=== PATIENT | female | born 1965 | race African-American/Black ===

== ENCOUNTER 2017-08-22 19:38 | Emergency (ER) | payer OTHER ==
[2017-08-22] MEDS ORDERED: IPRATROPIUM-ALBUTEROL 3 ML NEB INHALATION STA ×2 (19:52→20:14)
[2017-08-22] MEDS ORDERED: methylPREDNISolone SOD SUCCI 125 MG/2 ML VIAL IV STA (20:14)
[2017-08-22] MEDS ORDERED: SODIUM CHLORIDE 0.9% 1,000 ML IV STA (20:14)
[2017-08-22] MEDS ORDERED: SODIUM CHLORIDE 0.9% 500 ML IV STA (20:14)
--- NOTE | 2017-08-22 20:18 | ED ---
SOB HPI - General Chief Complaint: Shortness of Breath Stated Complaint: SOB Time Seen by Provider: 08/22/17 20:06 Source: patient, EMS Mode of arrival: EMS Limitations: no limitations - History of Present Illness Initial Comments: This 52-year-old -Russian female presents with a complaint of some shortness of breath. She states that it initially started last night but then resolved and came back this morning. She does complain of a cough with clear production. She denies any chest pain. There is no leg pain or swelling. She does have a history of asthma and feels as though her asthma is exacerbated. She states that this often times will occur when she has a cold. She does not utilize a home nebulizer but does have a inhaler. No other complaints or modifying factors. - Related Data Home Medications Medication Instructions Recorded Confirmed Atorvastatin [Lipitor] 10 mg PO DAILY 08/22/17 08/22/17 Ergocalciferol [Vitamin D2] 50,000 unit PO Q7D 08/22/17 08/22/17 Metoprolol Succinate [Toprol Xl] 50 mg PO DAILY 08/22/17 08/22/17 metFORMIN HCL [Glucophage] 500 mg PO DAILY 08/22/17 08/22/17 Previous Rx's Medication Instructions Recorded Albuterol Sulfate [Proair Hfa] 2 puff INHALATION Q4HR PRN #1 08/22/17 inhaler Allergies Allergy/AdvReac Type Severity Reaction Status Date / Time ragweed pollen Allergy Unknown Verified 08/22/17 20:00 tree and shrub pollen Allergy Unknown Verified 08/22/17 20:00 Review of Systems ROS Statement: Those systems with pertinent positive or pertinent negative responses have been documented in the HPI. ROS Other: All systems not noted in ROS Statement are negative. Past Medical History Past Medical History: Diabetes Mellitus, Hyperlipidemia, Hypertension History of Any Multi-Drug Resistant Organisms: None Reported Past Surgical History: Hysterectomy Additional Past Surgical History / Comment(s): hysterectomy Past Psychological History: No Psychological Hx Reported Smoking Status: Current every day smoker Past Alcohol Use History: None Reported Past Drug Use History: None Reported General Exam - General Exam Comments Initial Comments: GENERAL: The patient is well nourished and well hydrated. VITAL SIGNS: Heart rate, blood pressure, respiratory rate reviewed as recorded in nurse's notes. EYES: Pupils are round and reactive. Extraocular movements are intact. No conjunctival / lid redness or swelling. ENT: No external evidence of injury, swelling, or ecchymosis. Airway is patent. Throat is clear. NECK: Nontender. No swelling or evidence of injury. No subcutaneous emphysema. Trachea is midline. No thyroid mass. HEART: Regular rate and rhythm. Good peripheral pulses. LUNGS/CHEST: There is mild wheezing noted bilaterally. No ecchymosis, subcutaneous emphysema, or tenderness. ABDOMEN: Abdomen soft without tenderness. No palpable masses or organomegaly. No peritoneal signs. No abdominal wall swelling or ecchymosis. EXTREMITIES: No extremity tenderness. Normal muscle tone and function. No thoracolumbar tenderness. NEUROLOGIC: Sensation is grossly intact. Cranial nerve exam reveals face is symmetrical, tongue is midline, speech is clear. SKIN: No abrasions or ecchymosis is noted. No induration or masses noted. PSYCHIATRIC: Alert and oriented. Appropriate behavior and judgment. Limitations: no limitations Course Vital Signs 08/22/17 08/22/17 08/22/17 19:46 19:53 20:03 Temperature 99.1 F Pulse Rate 92 80 Respiratory 24 24 Rate Blood Pressure 179/90 O2 Sat by Pulse 91 L Oximetry 08/22/17 08/22/17 08/22/17 20:25 20:45 21:04 Temperature Pulse Rate 92 88 92 Respiratory Rate Blood Pressure O2 Sat by Pulse Oximetry Medical Decision Making - Medical Decision Making The patient was seen and examined. All diagnostics were reviewed. A double DuoNeb breathing treatment is ordered. Solu-Medrol is ordered the patient refuses this medication stating that she is worried about a reaction to it. She understands that it is recommended that she be on some steroids as it is felt as though her asthma is exacerbated but she still refuses. The laboratories reviewed and does show a mild hyperglycemia and mild leukocytosis but otherwise is unremarkable. The chest x-ray does not show any acute process. Is felt as though she likely does have an exacerbation of her asthma. The possibility of a mild upper respiratory infections rarely is possible as well. Her bronchospasm is significantly improved on recheck. It is felt as though she is stable for discharge. It is also felt as though she would benefit from a home nebulizer but refuses a home nebulizer and also refuses prednisone. Return parameters are discussed. - Lab Data Result diagrams: 08/22/17 21:00 08/22/17 21:00 Lab Results 08/22/17 08/22/17 08/22/17 Range/Units 21:00 21:00 21:00 WBC 12.5 H (3.8-10.6) k/uL RBC 4.58 (3.80-5.40) m/uL Hgb 13.5 (11.4-16.0) gm/dL Hct 42.4 (34.0-46.0) % MCV 92.5 (80.0-100.0) fL MCH 29.3 (25.0-35.0) pg MCHC 31.7 (31.0-37.0) g/dL RDW 12.5 (11.5-15.5) % Plt Count 268 (150-450) k/uL Neutrophils % 86 % Lymphocytes % 8 % Monocytes % 3 % Eosinophils % 2 % Basophils % 0 % Neutrophils # 10.8 H (1.3-7.7) k/uL Lymphocytes # 1.0 (1.0-4.8) k/uL Monocytes # 0.3 (0-1.0) k/uL Eosinophils # 0.2 (0-0.7) k/uL Basophils # 0.0 (0-0.2) k/uL PT (9.0-12.0) sec INR (<1.2) APTT (22.0-30.0) sec Sodium 142 (137-145) mmol/L Potassium 4.6 (3.5-5.1) mmol/L Chloride 106 (98-107) mmol/L Carbon Dioxide 28 (22-30) mmol/L Anion Gap 8 mmol/L BUN 15 (7-17) mg/dL Creatinine 1.00 (0.52-1.04) mg/dL Est GFR (MDRD) Af Amer >60 (>60 ml/min/1.73 sqM) Est GFR (MDRD) Non-Af 58 (>60 ml/min/1.73 sqM) Glucose 153 H (74-99) mg/dL Calcium 9.3 (8.4-10.2) mg/dL Total Bilirubin <0.1 L (0.2-1.3) mg/dL AST 21 (14-36) U/L ALT 15 (9-52) U/L Alkaline Phosphatase 75 (38-126) U/L Total Creatine Kinase 140 H (30-135) U/L CK-MB (CK-2) 1.7 (0.0-2.4) ng/mL CK-MB (CK-2) Rel Index 1.2 Troponin I <0.012 (0.000-0.034) ng/mL Total Protein 6.7 (6.3-8.2) g/dL Albumin 3.8 (3.5-5.0) g/dL Influenza Type A RNA (Not Detectd) Influenza Type B (PCR) (Not Detectd) 08/22/17 08/22/17 Range/Units 21:00 21:00 WBC (3.8-10.6) k/uL RBC (3.80-5.40) m/uL Hgb (11.4-16.0) gm/dL Hct (34.0-46.0) % MCV (80.0-100.0) fL MCH (25.0-35.0) pg MCHC (31.0-37.0) g/dL RDW (11.5-15.5) % Plt Count (150-450) k/uL Neutrophils % % Lymphocytes % % Monocytes % % Eosinophils % % Basophils % % Neutrophils # (1.3-7.7) k/uL Lymphocytes # (1.0-4.8) k/uL Monocytes # (0-1.0) k/uL Eosinophils # (0-0.7) k/uL Basophils # (0-0.2) k/uL PT 9.6 (9.0-12.0) sec INR 1.0 (<1.2) APTT 23.9 (22.0-30.0) sec Sodium (137-145) mmol/L Potassium (3.5-5.1) mmol/L Chloride (98-107) mmol/L Carbon Dioxide (22-30) mmol/L Anion Gap mmol/L BUN (7-17) mg/dL Creatinine (0.52-1.04) mg/dL Est GFR (MDRD) Af Amer (>60 ml/min/1.73 sqM) Est GFR (MDRD) Non-Af (>60 ml/min/1.73 sqM) Glucose (74-99) mg/dL Calcium (8.4-10.2) mg/dL Total Bilirubin (0.2-1.3) mg/dL AST (14-36) U/L ALT (9-52) U/L Alkaline Phosphatase (38-126) U/L Total Creatine Kinase (30-135) U/L CK-MB (CK-2) (0.0-2.4) ng/mL CK-MB (CK-2) Rel Index Troponin I (0.000-0.034) ng/mL Total Protein (6.3-8.2) g/dL Albumin (3.5-5.0) g/dL Influenza Type A RNA Not Detected (Not Detectd) Influenza Type B (PCR) Not Detected (Not Detectd) Disposition Clinical Impression: Dyspnea, Leukocytosis, Hypertension, Cough, Asthma exacerbation, Upper respiratory infection Disposition: HOME SELF-CARE Condition: Good Instructions: Asthma (ED), Bronchospasm (ED), Upper Respiratory Infection (ED) , Hypertension (ED) Prescriptions: Albuterol Sulfate [Proair Hfa] 2 puff INHALATION Q4HR PRN #1 inhaler PRN Reason: cough or YASMEEN Referrals: Jennifer Rabago MD [Primary Care Provider] - 1-2 days Time of Disposition: 23:02
[2017-08-22 21:07] LABS: Basophils % (A) 0 %; Eosinophils # (A) 0.2 k/uL (0-0.7); Eosinophils % (A) 2 %; HCT 42.4 % (34.0-46.0); HGB 13.5 gm/dL (11.4-16.0); Lymphocytes % (A) 8 %; MCH 29.3 pg (25.0-35.0); MCHC 31.7 g/dL (31.0-37.0); MCV 92.5 fL (80.0-100.0); Monocytes # (A) 0.3 k/uL (0-1.0); Monocytes % (A) 3 %; Neutrophils # (A) 10.8 k/uL (1.3-7.7); Neutrophils % (A) 86 %; Platelet Count 268 k/uL (150-450); RBC 4.58 m/uL (3.80-5.40); RDW 12.5 % (11.5-15.5); WBC 12.5 k/uL (3.8-10.6)
[2017-08-22 21:15] LABS: Partial Thromboplastin Time 23.9 sec (22.0-30.0); Prothrombin Time 9.6 sec (9.0-12.0)
[2017-08-22 21:18] LABS: ALT 15 U/L (9-52); AST 21 U/L (14-36); Albumin 3.8 g/dL (3.5-5.0); Alkaline Phosphatase 75 U/L (38-126); Blood Urea Nitrogen 15 mg/dL (7-17); Calcium 9.3 mg/dL (8.4-10.2); Carbon Dioxide 28 mmol/L (22-30); Chloride 106 mmol/L (98-107); Glucose 153 mg/dL (74-99); Potassium 4.6 mmol/L (3.5-5.1); Total Bilirubin <0.1 mg/dL (0.2-1.3); Total Protein 6.7 g/dL (6.3-8.2)
[2017-08-22 21:19] LABS: Anion Gap 8 mmol/L; Sodium 142 mmol/L (137-145)
[2017-08-22 21:28] LABS: Creatine Kinase 140 U/L (30-135)
[2017-08-22 21:41] LABS: Creatine Kinase MB 1.7 ng/mL (0.0-2.4); Troponin I <0.012 ng/mL (0.000-0.034)
--- NOTE | 2017-08-22 22:01 | XR ---
EXAMINATION TYPE: XR chest 2V DATE OF EXAM: 08/22/2017 COMPARISON: NONE HISTORY: Difficulty breathing TECHNIQUE: Frontal and lateral views of the chest are obtained. FINDINGS: Copious soft tissues partially obscure the lung bases on the frontal image although no foc al consolidation is seen on the lateral image. There is no focal air space opacity, pleural effusion, or pneumothorax seen. Pulmonary hyperinflation and flattening the diaphragms may relate to degree of inspiration or underlying COPD. The osseous structures are intact. Multiple healed callused right p osterior lateral rib fractures are identified. IMPRESSION: No acute cardiopulmonary process.
[2017-08-22 23:24] VITALS: BP 133/87; PULSE 90; RESP 18; TEMP 100.1
== END 2017-08-22 23:28 | disposition home or self-care (01) ==
LOC: EC 19:38
DX: J45.901 Unspecified asthma with (acute) exacerbation (principal); J06.9 Acute upper respiratory infection, unspecified; I10 Essential (primary) hypertension; D72.829 Elevated white blood cell count, unspecified; E11.65 Type 2 diabetes mellitus with hyperglycemia; E78.5 Hyperlipidemia, unspecified; F17.200 Nicotine dependence, unspecified, uncomplicated; Z79.84 Long term (current) use of oral hypoglycemic drugs; Z79.899 Other long term (current) drug therapy; Z91.048 Other nonmedicinal substance allergy status; Z53.29 Procedure and treatment not carried out because of patient's decision for other reasons
CPT/HCPCS: 36415; 71046; 80053; 82550; 82553; 84484; 85025; 85610; 85730; 87040; 87502; 93005; 94640; 96360; 96361; 99285

== ENCOUNTER 2018-03-23 09:14 | Emergency (ER) | payer OTHER ==
[2018-03-23 09:59] VITALS: RESP 16
--- NOTE | 2018-03-23 13:11 | ED ---
ENT HPI - General Chief complaint: Dental/Oral Stated complaint: swelling left side of face Time Seen by Provider: 03/23/18 13:02 Source: patient, RN notes reviewed Mode of arrival: ambulatory Limitations: no limitations - History of Present Illness Initial comments: 52-year-old female presents emergency dept for left lower cheek swelling. Patient states this started 1 week ago states is slightly worsened. Patient denies any fever, chills, typically swelling. Patient states is minimal pain. She states that she has known bad tooth and left lower but has no current dental insurance has not followed up. Patient denies any headache, dizziness, neck stiffness. Patient offers no other complaints. - Related Data Home Medications Medication Instructions Recorded Confirmed Atorvastatin [Lipitor] 10 mg PO DAILY 08/22/17 03/23/18 Metoprolol Succinate [Toprol Xl] 50 mg PO DAILY 08/22/17 03/23/18 metFORMIN HCL [Glucophage] 500 mg PO DAILY 08/22/17 03/23/18 Previous Rx's Medication Instructions Recorded Penicillin V Potassium [Pen Vee K] 500 mg PO QID #40 tablet 03/23/18 Allergies Allergy/AdvReac Type Severity Reaction Status Date / Time ragweed pollen Allergy Unknown Verified 03/23/18 12:52 tree and shrub pollen Allergy Unknown Verified 03/23/18 12:52 Review of Systems ROS Statement: Those systems with pertinent positive or pertinent negative responses have been documented in the HPI. ROS Other: All systems not noted in ROS Statement are negative. Past Medical History Past Medical History: Diabetes Mellitus, Hyperlipidemia, Hypertension History of Any Multi-Drug Resistant Organisms: None Reported Past Surgical History: Hysterectomy, Orthopedic Surgery Additional Past Surgical History / Comment(s): hysterectomy sinus knee Past Psychological History: No Psychological Hx Reported Smoking Status: Current every day smoker Past Alcohol Use History: None Reported Past Drug Use History: None Reported General Exam General appearance: alert, in no apparent distress Head exam: Present: atraumatic, normocephalic, normal inspection Eye exam: Present: normal appearance, PERRL, EOMI. Absent: scleral icterus, conjunctival injection, periorbital swelling ENT exam: Present: mucous membranes moist, TM's normal bilaterally. Absent: normal oropharynx (Multiple dental fillings noted, no abscess noted, mild swelling to the left lower mandible region) Neck exam: Present: normal inspection, full ROM. Absent: tenderness, meningismus, lymphadenopathy Respiratory exam: Present: normal lung sounds bilaterally. Absent: respiratory distress, wheezes, rales, rhonchi, stridor Cardiovascular Exam: Present: regular rate, normal rhythm, normal heart sounds. Absent: systolic murmur, diastolic murmur, rubs, gallop, clicks Course Vital Signs 03/23/18 09:57 Temperature 97.8 F Pulse Rate 63 Respiratory 16 Rate Blood Pressure 147/97 O2 Sat by Pulse 95 Oximetry Medical Decision Making - Medical Decision Making 52-year-old female presented for left lower dental pain, swelling. Patient we treated for dental infection with pen VK she'll follow-up outpatient return for any worsening symptoms. Disposition Clinical Impression: Toothache, Dental infection Disposition: HOME SELF-CARE Condition: Stable Instructions: Dental Abscess (ED) Additional Instructions: Please return to the Emergency Department if symptoms worsen or any other concerns. Prescriptions: Penicillin V Potassium [Pen Vee K] 500 mg PO QID #40 tablet Is patient prescribed a controlled substance at d/c from ED?: No Referrals: Jennifer Rabago MD [Primary Care Provider] - 1-2 days Time of Disposition: 13:11
[2018-03-23 13:25] VITALS: BP 167/80; PULSE 61; TEMP 98
== END 2018-03-23 13:24 | disposition home or self-care (01) ==
LOC: EC 09:14
DX: K04.7 Periapical abscess without sinus (principal); E11.9 Type 2 diabetes mellitus without complications; E78.5 Hyperlipidemia, unspecified; I10 Essential (primary) hypertension; F17.200 Nicotine dependence, unspecified, uncomplicated; Z79.84 Long term (current) use of oral hypoglycemic drugs; Z79.899 Other long term (current) drug therapy; Z91.048 Other nonmedicinal substance allergy status
CPT/HCPCS: 99283

== ENCOUNTER → 2018-07-31 | Outpatient (CLI) | payer OTHER ==
[2018-07-31 09:31] LABS: Appearance,Urine Clear (Clear); Bilirubin,Urine Negative (Negative); Blood,Urine Negative (Negative); Color,Urine Light Yellow; Glucose,Urine (UA) Negative (Negative); Ketones,Urine Negative (Negative); Leukocyte Esterase,Urine Negative (Negative); Nitrite,Urine Negative (Negative); PH, Urine 5.5 (5.0-8.0); Protein,Urine Negative (Negative); Specific Gravity,Urine 1.009 (1.001-1.035); Urobilinogen,Urine <2.0 mg/dL (<2.0)
[2018-07-31 09:33] LABS: Basophils % (A) 1 %; Eosinophils # (A) 0.2 k/uL (0-0.7); Eosinophils % (A) 3 %; HCT 46.5 % (34.0-46.0); HGB 14.3 gm/dL (11.4-16.0); Lymphocytes # (A) 2.1 k/uL (1.0-4.8); Lymphocytes % (A) 28 %; MCH 28.7 pg (25.0-35.0); MCHC 30.7 g/dL (31.0-37.0); MCV 93.5 fL (80.0-100.0); Monocytes # (A) 0.4 k/uL (0-1.0); Monocytes % (A) 5 %; Neutrophils # (A) 4.5 k/uL (1.3-7.7); Neutrophils % (A) 61 %; Platelet Count 261 k/uL (150-450); RBC 4.97 m/uL (3.80-5.40); RDW 13.3 % (11.5-15.5); WBC 7.3 k/uL (3.8-10.6)
[2018-07-31 17:37] LABS: Albumin 4.3 g/dL (3.80-4.90); Albumin/Globulin Ratio 1.59 (1.20-2.10); Anion Gap 9.3 mmol/L (4.00-12.00); Calcium 9.3 mg/dL (8.7-10.3); Carbon Dioxide 28.7 mmol/L (21.6-31.8); Globulin 2.7 g/dL (1.6-3.3); LDL Cholesterol,Calculated 103.4 mg/dL (0.0-131.0); Potassium 4.5 mmol/L (3.5-5.5); Total Bilirubin 0.3 mg/dL (0.2-1.2); VLDL Calculation 30.6 mg/dL (5.00-40.00)
[2018-07-31 19:08] LABS: Hemoglobin A1C 6.5 % (4.0-6.0)
== END ==
LOC: LABWHC1 08:33
PROVIDERS: ATTEND Family Medicine
DX: E11.9 Type 2 diabetes mellitus without complications (principal); E78.5 Hyperlipidemia, unspecified; I10 Essential (primary) hypertension; Z79.899 Other long term (current) drug therapy
CPT/HCPCS: 36415; 80053; 80061; 81003; 82550; 83036; 84443; 85025

== ENCOUNTER → 2018-10-17 | Outpatient (CLI) | payer OTHER | LOC: CPPFTMAIN 10:58 | PROVIDERS: ATTEND Family Medicine | DX: R05 Cough (principal) | CPT/HCPCS: 94060; 94726; 94729 ==

== ENCOUNTER 2018-12-07 07:36 | Emergency (ER) | payer OTHER ==
[2018-12-07 07:42] VITALS: BP 150/98; PULSE 77; RESP 18; TEMP 97.7
[2018-12-07] MEDS ORDERED: ACET/COD 300 MG/30 MG STARTER PACK 6 TAB BTL PO STA (07:45)
--- NOTE | 2018-12-07 07:45 | ED ---
ENT HPI - General Chief complaint: Dental/Oral Stated complaint: dental pain/infection Time Seen by Provider: 12/07/18 07:42 Source: patient, RN notes reviewed Mode of arrival: ambulatory Limitations: no limitations - History of Present Illness Initial comments: 53-year-old female presents emergency Department chief complaint abdominal pain and right-sided last 2 days. Patient states she called her dentist who told her that they should go to the ER to be prescribed antibiotics. Patient states it's right upper and lower. Patient states she has a cracked tooth that she knows about. No fevers no chills no trismus. Patient denies any difficulty swallowing or difficulty breathing. - Related Data Home Medications Medication Instructions Recorded Confirmed Atorvastatin [Lipitor] 10 mg PO DAILY 08/22/17 03/23/18 Metoprolol Succinate [Toprol Xl] 50 mg PO DAILY 08/22/17 03/23/18 metFORMIN HCL [Glucophage] 500 mg PO DAILY 08/22/17 03/23/18 Previous Rx's Medication Instructions Recorded Penicillin V Potassium [Pen Vee K] 500 mg PO QID #40 tablet 03/23/18 Ibuprofen [Motrin] 600 mg PO Q8HR PRN #30 tab 12/07/18 Penicillin V Potassium [Pen Vee K] 500 mg PO QID #40 tablet 12/07/18 Allergies Allergy/AdvReac Type Severity Reaction Status Date / Time ragweed pollen Allergy Unknown Verified 12/07/18 07:42 tree and shrub pollen Allergy Unknown Verified 12/07/18 07:42 Review of Systems ROS Statement: Those systems with pertinent positive or pertinent negative responses have been documented in the HPI. ROS Other: All systems not noted in ROS Statement are negative. Past Medical History Past Medical History: Diabetes Mellitus, Hyperlipidemia, Hypertension History of Any Multi-Drug Resistant Organisms: None Reported Past Surgical History: Hysterectomy, Orthopedic Surgery Additional Past Surgical History / Comment(s): hysterectomy sinus knee Past Psychological History: No Psychological Hx Reported Smoking Status: Current every day smoker Past Alcohol Use History: None Reported Past Drug Use History: None Reported General Exam Limitations: no limitations General appearance: alert, in no apparent distress Head exam: Present: atraumatic, normocephalic, normal inspection Eye exam: Present: normal appearance, PERRL, EOMI. Absent: scleral icterus, conjunctival injection, periorbital swelling ENT exam: Present: mucous membranes moist. Absent: normal oropharynx (Poor dentition, multiple dental caries, dental fracture right upper) Neck exam: Present: normal inspection, full ROM. Absent: tenderness, meningismus, lymphadenopathy Respiratory exam: Present: normal lung sounds bilaterally. Absent: respiratory distress, wheezes, rales, rhonchi, stridor Cardiovascular Exam: Present: regular rate, normal rhythm, normal heart sounds. Absent: systolic murmur, diastolic murmur, rubs, gallop, clicks Course Vital Signs 12/07/18 07:39 Temperature 97.7 F Pulse Rate 77 Respiratory 18 Rate Blood Pressure 150/98 O2 Sat by Pulse 96 Oximetry Medical Decision Making - Medical Decision Making 53-year-old female presented for dental pain. Patient was prescribed 10 VK, ibuprofen and Tylenol with codeine starter pack. Patient will follow-up with dentist in 2 days return for any worsening symptoms. Disposition Clinical Impression: Pain, dental, Dental infection Disposition: HOME SELF-CARE Condition: Stable Instructions (If sedation given, give patient instructions): Dental Abscess (ED) Additional Instructions: Please return to the Emergency Department if symptoms worsen or any other concerns. Prescriptions: Ibuprofen [Motrin] 600 mg PO Q8HR PRN #30 tab PRN Reason: Pain Penicillin V Potassium [Pen Vee K] 500 mg PO QID #40 tablet Is patient prescribed a controlled substance at d/c from ED?: No Referrals: Jennifer Rabago MD [Primary Care Provider] - 1-2 days Time of Disposition: 07:45
== END 2018-12-07 08:01 | disposition home or self-care (01) ==
LOC: EC 07:36
DX: K04.7 Periapical abscess without sinus (principal); E11.9 Type 2 diabetes mellitus without complications; E78.5 Hyperlipidemia, unspecified; I10 Essential (primary) hypertension; F17.200 Nicotine dependence, unspecified, uncomplicated; Z79.84 Long term (current) use of oral hypoglycemic drugs; Z79.899 Other long term (current) drug therapy; Z91.048 Other nonmedicinal substance allergy status
CPT/HCPCS: 99282

== ENCOUNTER 2019-03-27 08:02 | Emergency (ER) | payer OTHER ==
[2019-03-27 08:12] VITALS: BP 164/106; PULSE 65; RESP 18; TEMP 97.8
--- NOTE | 2019-03-27 08:40 | ED ---
Lower Extremity Injury HPI - General Chief Complaint: Extremity Injury, Lower Stated Complaint: Rash on knee Time Seen by Provider: 03/27/19 08:28 Source: patient, RN notes reviewed Mode of arrival: ambulatory Limitations: no limitations - History of Present Illness Initial Comments: 53-year-old female presents emergency from chief complaint of rash to her left knee. Patient states that she fell and had an abrasion couple days ago. She has been putting bandages on it and noticed that she's had a rash or. Patient denies any fevers chills no pain with range of motion of her knee she states her tetanus is up-to-date. Patient states she has not placed anything over the area of the rash such as a cream. - Related Data Home Medications Medication Instructions Recorded Confirmed Atorvastatin [Lipitor] 10 mg PO DAILY 08/22/17 03/23/18 Metoprolol Succinate [Toprol Xl] 50 mg PO DAILY 08/22/17 03/23/18 metFORMIN HCL [Glucophage] 500 mg PO DAILY 08/22/17 03/23/18 Allergies Allergy/AdvReac Type Severity Reaction Status Date / Time ragweed pollen Allergy Unknown Verified 03/27/19 08:40 tree and shrub pollen Allergy Unknown Verified 03/27/19 08:40 Review of Systems ROS Statement: Those systems with pertinent positive or pertinent negative responses have been documented in the HPI. ROS Other: All systems not noted in ROS Statement are negative. Past Medical History Past Medical History: Diabetes Mellitus, Hyperlipidemia, Hypertension History of Any Multi-Drug Resistant Organisms: None Reported Past Surgical History: Hysterectomy, Orthopedic Surgery Additional Past Surgical History / Comment(s): hysterectomy sinus knee Past Psychological History: No Psychological Hx Reported Smoking Status: Current every day smoker Past Alcohol Use History: None Reported Past Drug Use History: None Reported General Exam Limitations: no limitations General appearance: alert, in no apparent distress Head exam: Present: atraumatic, normocephalic, normal inspection Eye exam: Present: normal appearance, PERRL, EOMI. Absent: scleral icterus, conjunctival injection, periorbital swelling Respiratory exam: Present: normal lung sounds bilaterally. Absent: respiratory distress, wheezes, rales, rhonchi, stridor Cardiovascular Exam: Present: regular rate, normal rhythm, normal heart sounds. Absent: systolic murmur, diastolic murmur, rubs, gallop, clicks Extremities exam: Present: other (Right knee there is an abrasion of swelling, there is an erythematous slightly papular rash over the area where bandage is placed. Just contact dermatitis) Course Vital Signs 03/27/19 08:08 Temperature 97.8 F Pulse Rate 65 Respiratory 18 Rate Blood Pressure 164/106 O2 Sat by Pulse 99 Oximetry Medical Decision Making - Medical Decision Making 53-year-old female presented to emergency department for rash to her right knee. This is consistent with contact dermatitis from her bandages. Patient advised to apply topical hydrocortisone or Benadryl cream. Disposition Clinical Impression: Contact dermatitis Disposition: HOME SELF-CARE Condition: Stable Instructions (If sedation given, give patient instructions): Contact Dermatitis (ED) Additional Instructions: Use [id number] topical Benadryl or hydrocortisone cream. Please return to the Emergency Department if symptoms worsen or any other concerns. Is patient prescribed a controlled substance at d/c from ED?: No Referrals: Jennifer Rabago MD [Primary Care Provider] - 1-2 days Time of Disposition: 08:40
== END 2019-03-27 08:43 | disposition home or self-care (01) ==
LOC: EC 08:02
DX: L25.9 Unspecified contact dermatitis, unspecified cause (principal); E11.9 Type 2 diabetes mellitus without complications; E78.5 Hyperlipidemia, unspecified; I10 Essential (primary) hypertension; F17.200 Nicotine dependence, unspecified, uncomplicated; Z79.84 Long term (current) use of oral hypoglycemic drugs; Z79.899 Other long term (current) drug therapy; Z91.09 Other allergy status, other than to drugs and biological substances
CPT/HCPCS: 99282

== ENCOUNTER → 2019-03-27 | Outpatient (CLI) | payer OTHER ==
[2019-03-27 21:20] LABS: Hemoglobin A1C 6.5 % (4.0-6.0)
== END | disposition home or self-care (01) ==
LOC: LABWHC1 07:37
PROVIDERS: ATTEND Family Medicine
DX: E11.9 Type 2 diabetes mellitus without complications (principal)
CPT/HCPCS: 36415; 83036

== ENCOUNTER → 2019-05-18 | Outpatient (CLI) | payer OTHER ==
--- NOTE | 2019-05-18 13:13 | US ---
EXAMINATION TYPE: US thyroid st tissue head/neck DATE OF EXAM: 05/18/2019 COMPARISON: US 10/05/18 CLINICAL HISTORY: E04.1 Thyroid nodule; I73.9 reinaldo claudication. GLAND SIZE: Right Lobe: 3.6 x 1.8 x 1.5 cm Overall Parenchyma: homogenous Left Lobe: 3.9 x 1.9 x 1.4 cm Overall Parenchyma: homogeneous Isthmus Thickness: 0.4 cm NODULES RIGHT: # of nodules measured on right: 1 1. 0.6 X 0.5 x 0.3 cm hypoechoic mixed nodule at the mid pole with well-defined margins; . This no dule is wider than tall and shows no intranodular vascularity. Prior size: 0.8 x 0.7 x 0.9 cm LEFT: # of nodules measured on left: 0 ISTHMUS: # of nodules measured in the isthmus: 0 Bilateral neck scanned, no evidence of lymphadenopathy. IMPRESSION: Smaller size of the cystic right thyroid nodule, highly favoring a benign etiology.
--- NOTE | 2019-05-23 11:52 | P.ARTDOP ---
Arterial Doppler LOWER EXTREMITY ARTERIAL DOPPLER: DATE OF SERVICE: 05/18/2019 Reason for study: Calf pain. Doppler waveforms: Multiphasic bilaterally throughout. Pulse volume recording: []. Pressure gradients: None. Ankle-brachial indices: Greater than 1 bilaterally. Toe pressures: 129 on the right, 129 on the left Impression: Normal study.
== END | disposition home or self-care (01) ==
LOC: RADUSWWP 12:22
PROVIDERS: ATTEND Family Medicine
DX: E04.1 Nontoxic single thyroid nodule (principal); I73.9 Peripheral vascular disease, unspecified
CPT/HCPCS: 76536; 93922

== ENCOUNTER → 2019-07-23 | Outpatient (CLI) | payer OTHER | END | disposition home or self-care (01) | LOC: RADMRIMAIN 11:23 | PROVIDERS: ATTEND Family Medicine | DX: Z53.9 Procedure and treatment not carried out, unspecified reason (principal) ==

== ENCOUNTER → 2019-07-23 | Outpatient (CLI) | payer OTHER ==
--- NOTE | 2019-07-23 13:07 | US ---
EXAMINATION TYPE: US carotid duplex BILAT DATE OF EXAM: 07/23/2019 COMPARISON: NONE CLINICAL HISTORY: R09.89 Carotid bruit. Bruit EXAM MEASUREMENTS: RIGHT: Peak Systolic Velocity (PSV) cm/sec ----- Right CCA: 61.3 ----- Right ICA: 104.0 ----- Right ECA: 77.2 ICA/CCA ratio: 1.7 RIGHT: End Diastole cm/sec ----- Right CCA: 23.1 ----- Right ICA: 42.4 ----- Right ECA: 21.1 LEFT: Peak Systolic Velocity (PSV) cm/sec ----- Left CCA: 102.7 ----- Left ICA: 99.1 ----- Left ECA: 96.6 ICA/CCA ratio: 1.0 LEFT: End Diastole cm/sec ----- Left CCA: 34.7 ----- Left ICA: 45.6 ----- Left ECA: 29.9 VERTEBRALS (direction of flow): Right Vertebral: Antegrade Left Vertebral: Antegrade Rhythm: Normal No elevated velocities, no significant stenosis. IMPRESSION: Mild degree of grayscale atheromatous plaquing with no sonographically evident hemodynam ically significant stenosis within either visualized carotid arterial system. Criteria for Assigning % of Stenosis / Diameter reduction (Estimation based on the indirect measurements of the internal carotid artery velocities (ICA PSV). 1. Normal (no stenosis)=ICA PSV < 125 cm/s: ratio < 2.0: ICA EDV<40 cm/s. 2. Less than 50% stenosis=ICA PSV < 125 cm/s: ratio < 2.0: ICA EDV<40 cm/s. 3. 50 to 69% stenosis=ICA PSV of 125 to 230 cm/s: ration 2.0 ? 4.0: ICA EDV 40-100 cm/s. 4. Greater than 70% stenosis to near occlusion= ICA PSV > 230 cm/s: ratio > 4.0: ICA EDV > 100 cm/s. 5. Near occlusion= ICA PSV velocities may be low or undetectable: variable ratio and ICA EDV. 6. Total occlusion=unable to detect flow.
== END | disposition home or self-care (01) ==
LOC: RADUSWWP 12:39
PROVIDERS: ATTEND Family Medicine
DX: I67.2 Cerebral atherosclerosis (principal)
CPT/HCPCS: 93880

== ENCOUNTER → 2019-12-13 | Outpatient (CLI) | payer OTHER ==
[2019-12-13 11:04] LABS: HCT 42.7 % (34.0-46.0); HGB 13.5 gm/dL (11.4-16.0); Hypochromasia Moderate; MCHC 31.7 g/dL (31.0-37.0); MCV 94.8 fL (80.0-100.0); Mean Platelet Volume 7.9; Platelet Count 245 k/uL (150-450); RBC 4.51 m/uL (3.80-5.40); RDW 12.9 % (11.5-15.5)
[2019-12-13 19:31] LABS: African American GFR (CKD) 84.6 (60.0-200.0); Albumin 4.1 g/dL (3.80-4.90); Albumin/Globulin Ratio 1.71 (1.60-3.17); Anion Gap 6.1 mmol/L (4.00-12.00); BUN/Creat Ratio 17.78 Ratio (12.00-20.00); Carbon Dioxide 24.9 mmol/L (21.6-31.8); Chol/HDL Ratio 3.15; Globulin 2.4 g/dL (1.6-3.3); LDL Cholesterol,Calculated 88.2 mg/dL (0.0-131.0); Potassium 5.4 mmol/L (3.5-5.5); Total Bilirubin 0.2 mg/dL (0.2-1.2); Total Protein 6.5 g/dL (6.2-8.2); VLDL Calculation 40.8 mg/dL (5.00-40.00)
[2019-12-13 21:54] LABS: Hemoglobin A1C 6.8 % (4.0-6.0)
== END | disposition home or self-care (01) ==
LOC: LABWHC1 09:46
PROVIDERS: ATTEND Family Medicine
DX: I10 Essential (primary) hypertension (principal); E78.5 Hyperlipidemia, unspecified; E11.9 Type 2 diabetes mellitus without complications; E87.8 Other disorders of electrolyte and fluid balance, not elsewhere classified; E04.1 Nontoxic single thyroid nodule; R53.83 Other fatigue
CPT/HCPCS: 36415; 80053; 80061; 83036; 84443; 85027

== ENCOUNTER → 2020-03-13 | Outpatient (CLI) | payer OTHER ==
--- NOTE | 2020-03-17 08:03 | MM ---
Reason for exam: screening (asymptomatic). Last mammogram was performed 1 year and 5 months ago. History: Patient is postmenopausal. Physical Findings: A clinical breast exam by your physician is recommended on an annual basis and results should be correlated with mammographic findings. MG Screening Mammo w CAD Bilateral CC and MLO view(s) were taken. Prior study comparison: October 05, 2018, bilateral MG screening mammo w CAD. There are scattered fibroglandular densities. No significant changes when compared with prior studies. ASSESSMENT: Benign, BI-RAD 2 RECOMMENDATION: Routine screening mammogram of both breasts in 1 year.
== END | disposition home or self-care (01) ==
LOC: RADMAMWWP 07:00
PROVIDERS: ATTEND Family Medicine
DX: Z12.31 Encounter for screening mammogram for malignant neoplasm of breast (principal)
CPT/HCPCS: 77067

== ENCOUNTER → 2020-04-22 | Outpatient (CLI) | payer OTHER ==
[2020-04-22 08:33] LABS: Basophils % (A) 0 %; Eosinophils # (A) 0.2 k/uL (0-0.7); Eosinophils % (A) 3 %; HCT 44.3 % (34.0-46.0); HGB 14.1 gm/dL (11.4-16.0); Lymphocytes # (A) 1.9 k/uL (1.0-4.8); Lymphocytes % (A) 24 %; MCH 30.3 pg (25.0-35.0); MCHC 31.8 g/dL (31.0-37.0); MCV 95.4 fL (80.0-100.0); Mean Platelet Volume 7.4; Monocytes # (A) 0.4 k/uL (0-1.0); Monocytes % (A) 6 %; Neutrophils % (A) 65 %; Platelet Count 250 k/uL (150-450); RBC 4.65 m/uL (3.80-5.40); RDW 12.5 % (11.5-15.5); WBC 7.7 k/uL (3.8-10.6)
[2020-04-22 08:55] LABS: Appearance,Urine Clear (Clear); Bilirubin,Urine Negative (Negative); Blood,Urine Trace (Negative); Color,Urine Yellow; Glucose,Urine (UA) Negative (Negative); Ketones,Urine Negative (Negative); Leukocyte Esterase,Urine Negative (Negative); Nitrite,Urine Negative (Negative); Protein,Urine Negative (Negative); RBC,Urine <1 /hpf (0-5); Specific Gravity,Urine 1.011 (1.001-1.035); Squamous Epithelial Cell,Urine 1 /hpf (0-4); Urobilinogen,Urine <2.0 mg/dL (<2.0); WBC,Urine 1 /hpf (0-5)
[2020-04-22 16:08] LABS: African American GFR (CKD) 84.6 (60.0-200.0); Albumin 4.1 g/dL (3.80-4.90); Albumin/Globulin Ratio 1.71 (1.60-3.17); Anion Gap 7.5 mmol/L (4.00-12.00); BUN/Creat Ratio 15.56 Ratio (12.00-20.00); Calcium 9.2 mg/dL (8.7-10.3); Carbon Dioxide 28.5 mmol/L (21.6-31.8); Chol/HDL Ratio 2.41; Globulin 2.4 g/dL (1.6-3.3); LDL Cholesterol,Calculated 61.4 mg/dL (0.0-131.0); Potassium 4.4 mmol/L (3.5-5.5); Total Bilirubin 0.2 mg/dL (0.3-1.2); Total Protein 6.5 g/dL (6.2-8.2); VLDL Calculation 20.6 mg/dL (5.00-40.00)
[2020-04-22 17:45] LABS: Hemoglobin A1C 6.6 % (4.0-6.0)
== END | disposition home or self-care (01) ==
LOC: LABWHC1 07:40
PROVIDERS: ATTEND Family Medicine
DX: E11.9 Type 2 diabetes mellitus without complications (principal); E78.5 Hyperlipidemia, unspecified; Z79.899 Other long term (current) drug therapy; E03.9 Hypothyroidism, unspecified
CPT/HCPCS: 36415; 80053; 80061; 81001; 82550; 83036; 84443; 85025

== ENCOUNTER → 2020-10-07 | Outpatient (CLI) | payer OTHER ==
--- NOTE | 2020-10-07 12:26 | ECHOF ---
Referral Reason:I10, Z82.49, E11.9, R01.1 MEASUREMENTS -------- HEIGHT: 162.6 cm WEIGHT: 63.5 kg BP: RVIDd: 3.8 cm (< 3.3) IVSd: 0.9 cm (0.6 - 1.1) LVIDd: 4.0 cm (3.9 - 5.3) LVPWd: 1.2 cm (0.6 - 1.1) IVSs: 1.0 cm LVIDs: 2.5 cm LVPWs: 1.4 cm LAESV Index (A-L): 13.40 ml/m Ao Diam: 3.0 cm (2.0 - 3.7) AV Cusp: 1.8 cm (1.5 - 2.6) LA Diam: 3.0 cm (2.7 - 3.8) MV EXCURSION: 18.036 mm (> 18.000) MV EF SLOPE: 116 mm/s (70 - 150) EPSS: 1.7 cm MV E Evens: 0.82 m/s MV DecT: 208 ms MV A Evens: 0.76 m/s MV E/A Ratio: 1.08 RAP: 5.00 mmHg RVSP: 16.96 mmHg FINDINGS -------- Sinus rhythm. This was a technically difficult study with suboptimal apical views. The left ventricular size is normal. Left ventricular wall thickness is normal. Overall left vent ricular systolic function is normal with, an EF between 55 - 60 %. The right ventricle is mild to moderately enlarged. Normal LA size by volume 22+/-6 ml/m2. The right atrium was not well visualized. 5.0mg of Lumason was utilized for enhancement of images Interatrial and interventricular septum intact. There is mild aortic valve sclerosis. There is no evidence of aortic regurgitation. There is no e vidence of aortic stenosis. No mitral regurgitation. Mild tricuspid regurgitation present. There is no evidence of pulmonary hypertension. The right v entricular systolic pressure, as measured by Doppler, is 16.96mmHg. There is no pulmonic regurgitation present. The aortic root size is normal. IVC Not well visulized. There is no pericardial effusion. CONCLUSIONS -------- 1. The left ventricular size is normal. 2. Left ventricular wall thickness is normal. 3. Overall left ventricular systolic function is normal with, an EF between 55 - 60 %. 4. The right ventricle is mild to moderately enlarged. 5. There is mild aortic valve sclerosis. 6. Mild tricuspid regurgitation present. CATERER HELPER: Genevieve Oreilly RDCS
== END ==
LOC: RADNMMAIN 09:10
PROVIDERS: ATTEND Family Medicine
DX: I07.1 Rheumatic tricuspid insufficiency (principal); I35.8 Other nonrheumatic aortic valve disorders; I10 Essential (primary) hypertension; E11.9 Type 2 diabetes mellitus without complications; Z82.49 Family history of ischemic heart disease and other diseases of the circulatory system
CPT/HCPCS: C8929; Q9950; 93306

== ENCOUNTER 2020-10-11 10:27 | Emergency (ER) | payer OTHER ==
[2020-10-11 10:35] VITALS: BP 142/92; PULSE 83; RESP 18; TEMP 98.5
[2020-10-11] MEDS ORDERED: DEXAMETHASONE SOD PHOSPHATE 10 MG/ML 1 ML VIAL IV STA (10:49)
[2020-10-11] MEDS ORDERED: AMOXIC-POT CLAV 875MG STARTER PACK 2 TAB BTL PO STA (10:49)
[2020-10-11] MEDS ORDERED: ACETAMINOPHEN TAB 500 MG TAB PO STA (10:49)
[2020-10-11] MEDS ORDERED: IBUPROFEN 600 MG TAB PO STA (10:49)
[2020-10-11] MEDS ORDERED: AMOXIC-POT CLAV 875-125MG 1 EACH TAB PO STA (10:49)
--- NOTE | 2020-10-11 10:57 | ED ---
ENT HPI - General Chief complaint: ENT Stated complaint: Head ache,face swelling Time Seen by Provider: 10/11/20 10:35 Source: patient, RN notes reviewed, old records reviewed Mode of arrival: ambulatory Limitations: no limitations - History of Present Illness Initial comments: This is a 55-year-old female DF for evaluation patient is significantly has Nose nose pain still swollen and face. Patient has no fevers but she's had history of sinus infections in the past and this feels the same. Patient does not take lisinopril for any reason, denies any possibility of ALLERGIC reaction just complaining of sick significant swelling and drainage MD complaint: sore throat, other (nasal drainage) Location: nose Severity: moderate Severity scale (1-10): 5 Quality: aching Consistency: constant Improves with: none Worsens with: none Context-Epistaxis: history of similar Context- Dental: other (none) Context- Ear: other (none) Associated Symptoms: gum swelling, rhinorrhea, other (lip swelling) - Related Data Home Medications Medication Instructions Recorded Confirmed Atorvastatin [Lipitor] 10 mg PO DAILY 08/22/17 03/27/19 Metoprolol Succinate [Toprol Xl] 50 mg PO DAILY 08/22/17 03/27/19 metFORMIN HCL [Glucophage] 500 mg PO DAILY 08/22/17 03/27/19 Previous Rx's Medication Instructions Recorded Amoxic-Pot Clav 875-125Mg 1 tab PO Q12HR #20 tablet 10/11/20 [Augmentin 875-125] Allergies Allergy/AdvReac Type Severity Reaction Status Date / Time ragweed pollen Allergy Unknown Verified 10/11/20 10:32 tree and shrub pollen Allergy Unknown Verified 10/11/20 10:32 Review of Systems ROS Statement: Those systems with pertinent positive or pertinent negative responses have been documented in the HPI. ROS Other: All systems not noted in ROS Statement are negative. Past Medical History Past Medical History: Diabetes Mellitus, Hyperlipidemia, Hypertension History of Any Multi-Drug Resistant Organisms: None Reported Past Surgical History: Hysterectomy, Orthopedic Surgery Additional Past Surgical History / Comment(s): hysterectomy sinus knee Past Psychological History: No Psychological Hx Reported Smoking Status: Current every day smoker Past Alcohol Use History: None Reported Past Drug Use History: None Reported General Exam Limitations: no limitations General appearance: alert, in no apparent distress Head exam: Present: atraumatic, normocephalic, normal inspection Eye exam: Present: normal appearance, PERRL, EOMI. Absent: scleral icterus, conjunctival injection, periorbital swelling ENT exam: Present: normal exam, mucous membranes moist, other (Patient does have some drainage out of her right naris significant swelling to her upper lip area. This does appear to be a cellulitis with surrounding sinusitis) Neck exam: Present: normal inspection. Absent: tenderness, meningismus, lymphadenopathy Respiratory exam: Present: normal lung sounds bilaterally. Absent: respiratory distress, wheezes, rales, rhonchi, stridor Cardiovascular Exam: Present: regular rate, normal rhythm, normal heart sounds. Absent: systolic murmur, diastolic murmur, rubs, gallop, clicks GI/Abdominal exam: Present: soft, normal bowel sounds. Absent: distended, tenderness, guarding, rebound, rigid Extremities exam: Present: normal inspection, full ROM, normal capillary refill. Absent: tenderness, pedal edema, joint swelling, calf tenderness Back exam: Present: normal inspection Neurological exam: Present: alert, oriented X3, CN II-XII intact Psychiatric exam: Present: normal affect, normal mood Skin exam: Present: warm, dry, intact, normal color. Absent: rash Course Vital Signs 10/11/20 10:32 Temperature 98.5 F Pulse Rate 83 Respiratory 18 Rate Blood Pressure 142/92 O2 Sat by Pulse 98 Oximetry - Reevaluation(s) Reevaluation #1: 10/11/20 10:53 Records reviewed Reevaluation #2: 10/11/20 10:53 Patient during evaluation does not take any STEVE inhibitor Medical Decision Making - Medical Decision Making 55 female DF for evaluation patient does have acute sinusitis with surrounding edema. Patient replacement antibiotics and can be discharged home Disposition Clinical Impression: Acute sinusitis Disposition: HOME SELF-CARE Condition: Good Instructions (If sedation given, give patient instructions): Sinusitis (ED) Prescriptions: Amoxic-Pot Clav 875-125Mg [Augmentin 875-125] 1 tab PO Q12HR #20 tablet Is patient prescribed a controlled substance at d/c from ED?: No Referrals: Jennifer Rabago MD [Primary Care Provider] - 1-2 days
== END 2020-10-11 11:55 | disposition home or self-care (01) ==
LOC: EC 10:27
DX: J01.90 Acute sinusitis, unspecified (principal); E11.9 Type 2 diabetes mellitus without complications; E78.5 Hyperlipidemia, unspecified; I10 Essential (primary) hypertension; F17.200 Nicotine dependence, unspecified, uncomplicated
CPT/HCPCS: 99283; 96374; J1100

== ENCOUNTER → 2021-03-16 | Outpatient (CLI) | payer OTHER ==
--- NOTE | 2021-03-18 13:29 | MM ---
Reason for exam: screening (asymptomatic). Last mammogram was performed 1 year ago. History: Patient is postmenopausal. Physical Findings: A clinical breast exam by your physician is recommended on an annual basis and results should be correlated with mammographic findings. MG Screening Mammo w CAD Bilateral CC and MLO view(s) were taken. Prior study comparison: March 13, 2020, bilateral MG screening mammo w CAD. October 05, 2018, bilateral MG screening mammo w CAD. There are scattered fibroglandular densities. There is no discrete abnormality. No significant changes when compared with prior studies. ASSESSMENT: Negative, BI-RAD 1 RECOMMENDATION: Routine screening mammogram of both breasts in 1 year.
== END | disposition home or self-care (01) ==
LOC: RADMAMWWP 08:36
PROVIDERS: ATTEND Family Medicine
DX: Z12.31 Encounter for screening mammogram for malignant neoplasm of breast (principal)
CPT/HCPCS: 77067

== ENCOUNTER 2021-12-05 22:07 | Emergency (ER) | payer OTHER ==
[2021-12-05 22:39] VITALS: RESP 18; TEMP 98.1
[2021-12-06 01:38] VITALS: BP 140/93; PULSE 74
--- NOTE | 2021-12-06 01:43 | ED ---
Recheck HPI - General Chief Complaint: Recheck/Abnormal Lab/Rx Stated Complaint: High BP Time Seen by Provider: 12/06/21 01:42 Source: patient, RN notes reviewed, Caregiver Mode of arrival: ambulatory Limitations: no limitations - History of Present Illness Initial Comments: This is a 56-year-old female DF for evaluation. Patient coming in for elevated blood pressure. Patient is very concerned regarding her blood pressure. Patient states she took her blood pressure at home and then at a [facility] and was unavailable time she presents to ER with mildly elevated blood pressure. She has no other complaints of headache no chest pain or shortness of breath or abdominal pain. No weakness no nausea no vomiting no numbness or tingling. MD Complaint: other (elevated blood pressure) -: unknown Returns Today for: request for prescription, other (Elevated blood pressure) Symptoms Since Prior Visit: no new symptoms Associated Symptoms: none Treatments Prior to Arrival: other medications - Related Data Home Medications Medication Instructions Recorded Confirmed Atorvastatin [Lipitor] 10 mg PO DAILY 08/22/17 10/11/20 Metoprolol Succinate [Toprol Xl] 50 mg PO DAILY 08/22/17 10/11/20 metFORMIN HCL [Glucophage] 500 mg PO DAILY 08/22/17 10/11/20 Previous Rx's Medication Instructions Recorded Amoxic-Pot Clav 875-125Mg 1 tab PO Q12HR #20 tablet 10/11/20 [Augmentin 875-125] hydroCHLOROthiazide [Hydrodiuril] 50 mg PO DAILY #30 tab 12/06/21 Allergies Allergy/AdvReac Type Severity Reaction Status Date / Time ragweed pollen Allergy Unknown Verified 12/05/21 22:39 tree and shrub pollen Allergy Unknown Verified 12/05/21 22:39 Review of Systems ROS Statement: Those systems with pertinent positive or pertinent negative responses have been documented in the HPI. ROS Other: All systems not noted in ROS Statement are negative. Past Medical History Past Medical History: Diabetes Mellitus, Hyperlipidemia, Hypertension History of Any Multi-Drug Resistant Organisms: None Reported Past Surgical History: Hysterectomy, Orthopedic Surgery Additional Past Surgical History / Comment(s): hysterectomy sinus knee Past Psychological History: No Psychological Hx Reported Smoking Status: Current every day smoker Past Alcohol Use History: None Reported Past Drug Use History: None Reported General Exam Limitations: no limitations General appearance: alert, in no apparent distress, anxious Head exam: Present: atraumatic, normocephalic, normal inspection Eye exam: Present: normal appearance, PERRL, EOMI. Absent: scleral icterus, conjunctival injection, periorbital swelling ENT exam: Present: normal exam, mucous membranes moist Neck exam: Present: normal inspection. Absent: tenderness, meningismus, lymphadenopathy Respiratory exam: Present: normal lung sounds bilaterally. Absent: respiratory distress, wheezes, rales, rhonchi, stridor Cardiovascular Exam: Present: regular rate, normal rhythm, normal heart sounds. Absent: systolic murmur, diastolic murmur, rubs, gallop, clicks GI/Abdominal exam: Present: soft, normal bowel sounds. Absent: distended, tenderness, guarding, rebound, rigid Extremities exam: Present: normal inspection, full ROM, normal capillary refill. Absent: tenderness, pedal edema, joint swelling, calf tenderness Back exam: Present: normal inspection Neurological exam: Present: alert, oriented X3, CN II-XII intact Psychiatric exam: Present: normal affect, normal mood Skin exam: Present: warm, dry, intact, normal color. Absent: rash Course Vital Signs 12/05/21 12/06/21 22:36 01:37 Temperature 98.1 F Pulse Rate 87 74 Respiratory 18 18 Rate Blood Pressure 166/91 140/93 O2 Sat by Pulse 95 98 Oximetry - Reevaluation(s) Reevaluation #1: 12/06/21 Medical record is reviewed Patient is significantly improved here in the emergency department Patient informed results and questions answered Medical Decision Making - Medical Decision Making 56 female presenting for elevated blood pressure. Patient will have blood pressure medication increased and can be discharged home Disposition Clinical Impression: Hypertension Disposition: HOME SELF-CARE Condition: Good Instructions (If sedation given, give patient instructions): Chronic Hypertension (ED), Hypertension (ED) Prescriptions: hydroCHLOROthiazide [Hydrodiuril] 50 mg PO DAILY #30 tab Is patient prescribed a controlled substance at d/c from ED?: No Referrals: Christie Hurst MD [Primary Care Provider] - 1-2 days
[2021-12-06] MEDS ORDERED: hydroCHLOROthiazide 25 MG TAB PO STA ×2 (02:20)
== END 2021-12-06 02:32 | disposition home or self-care (01) ==
LOC: EC 22:07
DX: I10 Essential (primary) hypertension (principal); E11.9 Type 2 diabetes mellitus without complications; E78.5 Hyperlipidemia, unspecified; F17.200 Nicotine dependence, unspecified, uncomplicated; Z79.84 Long term (current) use of oral hypoglycemic drugs; Z79.899 Other long term (current) drug therapy
CPT/HCPCS: 99283

== ENCOUNTER → 2021-12-31 | Outpatient (CLI) | payer OTHER ==
--- NOTE | 2021-12-31 16:19 | US ---
EXAMINATION TYPE: US thyroid st tissue head/neck DATE OF EXAM: 12/31/2021 COMPARISON: 05/18/2019 CLINICAL HISTORY: 56-year-old female E04.1 Thyroid Nodule. TECHNIQUE: Multiple sonographic images of the thyroid gland are obtained. FINDINGS: GLAND SIZE: Right Lobe: 3.8 x 1.7 x 1.6 cm Overall Parenchyma: homogenous Left Lobe: 3.7 x 1.7 x 1.2 cm Overall Parenchyma: homogeneous Isthmus Thickness: 0.3 cm NODULES RIGHT: # of nodules measured on right: 0 LEFT: # of nodules measured on left: 0 ISTHMUS: # of nodules measured in the isthmus: 0 Bilateral neck scanned, no evidence of lymphadenopathy. IMPRESSION: The previous 6 mm right midpole nodule is no longer identified. No suspicious nodules are seen.
== END | disposition home or self-care (01) ==
LOC: RADUSWWP 14:48
PROVIDERS: ATTEND Family Medicine
DX: E04.1 Nontoxic single thyroid nodule (principal)
CPT/HCPCS: 76536

== ENCOUNTER → 2023-06-27 | Outpatient (CLI) | payer OTHER ==
--- NOTE | 2023-06-28 16:28 | MM ---
Reason for Exam: Screening (asymptomatic). Last mammogram was performed 2 year(s) and 4 month(s) ago. Patient History: Menarche at age 11. First Full-Term at age 19. Left ovary removed at age 49. Right ovary removed at age 49. Hysterectomy at age 49. Postmenopausal. Risk Values: Kelly 5 year model risk: 1.4%. NCI Lifetime model risk: 7.7%. Prior Study Comparison: 10/05/2018 Bilateral Screening Mammogram, [facility]. 03/13/2020 Bilateral Screening Mammogram, [facility]. 03/16/2021 Bilateral Screening Mammogram, [facility]. Tissue Density: There are scattered fibroglandular densities. Findings: Analyzed By CAD. Heart appears symmetrical. No significant interval change. No suspicious groups of microcalcifications, spiculated or lobular masses, architectural distortion or other secondary signs of malignancy are mammographically apparent. Overall Assessment: Negative, BI-RAD 1 Management: Screening Mammogram of both breasts in 1 year. A negative mammogram report should not preclude additional follow up of suspicious palpable abnormalities. Patient should continue monthly self breast exam. A clinical breast exam by your physician is recommended on an annual basis and results should be correlated with mammographic findings. Electronically signed and approved by: John Mendoza D.O. Radiologis
== END | disposition home or self-care (01) ==
LOC: RADMAMWWP 08:47
PROVIDERS: ATTEND Family Medicine
DX: Z12.31 Encounter for screening mammogram for malignant neoplasm of breast (principal); Z78.0 Asymptomatic menopausal state
CPT/HCPCS: 77067

== ENCOUNTER → 2024-05-14 | Outpatient (CLI) | payer OTHER ==
--- NOTE | 2024-05-14 10:45 | XR ---
EXAMINATION TYPE: XR chest 2V DATE OF EXAM: 05/14/2024 9:59 AM COMPARISON: None CLINICAL INDICATION: Female, 58 years old with history of F17.200 EVERYDAY SMOKER; [facility] TECHNIQUE: XR chest 2V Frontal and lateral views of the chest. FINDINGS: Lungs/Pleura: There is flattening of the diaphragm with increased lucency of the lungs. No evidence o f pneumothorax, pleural effusion or focal consolidation. Pulmonary vascularity: Unremarkable. Heart/mediastinum: Cardiomediastinal silhouette is unremarkable. Musculoskeletal: No acute osseous pathology. Other findings: None Lines/Tubes: IMPRESSION: 1. No acute cardiopulmonary disease process. 2. COPD changes. [facility], , 05/14/2024 10:43 AM
[2024-05-14 21:27] LABS: Microalbumin Creatinine Ratio <37 mg/g Cr (0-30); Urine Creatinine 32.2 mg/dL (28.0-217.0)
== END | disposition home or self-care (01) ==
LOC: LABWHC1 08:39
PROVIDERS: ATTEND Family Medicine
CPT/HCPCS: 71046; 82043; 82570

== ENCOUNTER → 2024-06-28 | Outpatient (CLI) | payer OTHER ==
[2024-06-28 10:36] LABS: Basophils # (A) 0.04 X 10*3/uL (0.00-0.10); Basophils % (A) 0.5 %; Eosinophils # (A) 0.15 X 10*3/uL (0.04-0.35); Eosinophils % (A) 1.8 %; HCT 41.7 % (37.2-46.3); HGB 13.2 g/dL (12.0-15.0); Lymphocytes # (A) 1.48 X 10*3/uL (0.90-5.00); Lymphocytes % (A) 17.4 %; MCH 29.9 pg (27.0-32.0); MCHC 31.7 g/dL (32.0-37.0); MCV 94.6 FL (80.0-97.0); Mean Platelet Volume 10.1 FL (9.5-12.2); Monocytes # (A) 0.47 X 10*3/uL (0.20-1.00); Monocytes % (A) 5.5 %; NRBC Per 100 WBC 0 X 10*3/uL (0.00-0.01); Neutrophils # (A) 6.36 X 10*3/uL (1.80-7.70); Neutrophils % (A) 74.4 %; Platelet Count 305 X 10*3/uL (140-440); RBC 4.41 X 10*6/uL (4.10-5.20); RDW 12.8 % (11.5-14.5); WBC 8.53 X 10*3/uL (4.50-10.00)
[2024-06-28 12:56] LABS: Erythrocyte Sedimentation Rate 10 mm/Hr (0-30)
== END | disposition home or self-care (01) ==
LOC: LABWHC1 08:00
PROVIDERS: ATTEND Family Medicine
DX: R23.0 Cyanosis (principal)
CPT/HCPCS: 36415; 85025; 85652; 86038; 86431

== ENCOUNTER → 2024-06-28 | Outpatient (CLI) | payer OTHER ==
--- NOTE | 2024-07-01 04:01 | MM ---
Reason for Exam: Screening (asymptomatic). Last screening mammogram was performed 12 month(s) ago. Patient History: Menarche at age 11. First Full-Term at age 19. Left ovary removed at age 49. Right ovary removed at age 49. Hysterectomy at age 49. Postmenopausal. Risk Values: Kelly 5 year model risk: 1.4%. NCI Lifetime model risk: 7.5%. Prior Study Comparison: 03/13/2020 Bilateral Screening Mammogram, [facility]. 03/16/2021 Bilateral Screening Mammogram, [facility]. 06/27/2023 Bilateral MG screening mammo w CAD, [facility]. Tissue Density: There are scattered areas of fibroglandular density. Findings: Analyzed By CAD. The pattern is symmetrical. No significant interval change No suspicious groups of microcalcifications, spiculated or lobular masses, architectural distortion or other secondary signs of malignancy are mammographically apparent. Overall Assessment: Benign, BI-RAD 2 Management: Screening Mammogram of both breasts in 1 year. A negative mammogram report should not preclude additional follow up of suspicious palpable abnormalities. Patient should continue monthly self breast exam. A clinical breast exam by your physician is recommended on an annual basis and results should be correlated with mammographic findings. Note on Kelly scores and lifetime risk: 1. A Kelly score greater than 3% is considered moderate risk. If this is the case, consider specialist referral to assess eligibility for a risk reducing agent. 2. If overall lifetime risk for the development of breast cancer is 20% or higher, the patient may qualify for future screening with alternating mammogram and breast MRI. [facility], , 07/01/2024 3:58 AM. Electronically signed and approved by: John Mendoza D.O. Radiologis
== END | disposition home or self-care (01) ==
LOC: RADMAMWWP 08:26
PROVIDERS: ATTEND Family Medicine
DX: Z12.31 Encounter for screening mammogram for malignant neoplasm of breast (principal); R92.323 Mammographic fibroglandular density, bilateral breasts; Z78.0 Asymptomatic menopausal state; Z90.722 Acquired absence of ovaries, bilateral
CPT/HCPCS: 77067

== ENCOUNTER → 2024-08-16 | Outpatient (CLI) | payer OTHER ==
[2024-08-16 10:51] LABS: Basophils # (A) 0.04 X 10*3/uL (0.00-0.10); Basophils % (A) 0.4 %; Eosinophils # (A) 0.17 X 10*3/uL (0.04-0.35); Eosinophils % (A) 1.9 %; HCT 44.2 % (37.2-46.3); HGB 13.7 g/dL (12.0-15.0); Lymphocytes # (A) 1.87 X 10*3/uL (0.90-5.00); Lymphocytes % (A) 20.8 %; MCH 29.4 pg (27.0-32.0); MCV 94.8 FL (80.0-97.0); Mean Platelet Volume 10.2 FL (9.5-12.2); Monocytes # (A) 0.52 X 10*3/uL (0.20-1.00); Monocytes % (A) 5.8 %; NRBC Per 100 WBC 0 X 10*3/uL (0.00-0.01); Neutrophils # (A) 6.37 X 10*3/uL (1.80-7.70); Neutrophils % (A) 70.7 %; Platelet Count 301 X 10*3/uL (140-440); RBC 4.66 X 10*6/uL (4.10-5.20); RDW 13.1 % (11.5-14.5); WBC 9.01 X 10*3/uL (4.50-10.00)
[2024-08-16 11:07] LABS: % Iron Saturation 16.67 (12.00-45.00); BUN/Creat Ratio 12.62 Ratio (12.00-20.00); Blood Urea Nitrogen 10.1 mg/dL (9.0-27.0); Calcium 9.8 mg/dL (8.7-10.3); Carbon Dioxide 27.1 mmol/L (21.6-31.8); Chloride 105 mmol/L (96-109); Ferritin 50.6 ng/mL (10.0-291.0); Glucose 108 mg/dL (70-110); Iron 64 UG/DL (50-170); Potassium 4.9 mmol/L (3.5-5.5); Sodium 143 mmol/L (135-145); Total Iron Binding Capacity 384 UG/DL (228-460)
[2024-08-16 16:08] LABS: Appearance,Urine Clear (Clear); Bilirubin,Urine Negative (Negative); Blood,Urine Negative (Negative); Color,Urine Yellow (Yellow); Ketones,Urine Negative (Negative); Nitrite,Urine Negative (Negative); Specific Gravity,Urine 1.011 (1.001-1.030); Urobilinogen,Urine 0.2 E.U./DL
== END | disposition home or self-care (01) ==
LOC: LABWHC1 08:00
PROVIDERS: ATTEND Internal Medicine Nephrology
DX: N17.9 Acute kidney failure, unspecified (principal)
CPT/HCPCS: 36415; 80048; 81003; 82728; 83540; 83550; 83970; 85025

== ENCOUNTER → 2024-10-29 | Outpatient (CLI) | payer OTHER ==
--- NOTE | 2024-10-29 14:15 | US ---
EXAMINATION TYPE: US kidneys/renal and bladder DATE OF EXAM: 10/29/2024 COMPARISON: NONE CLINICAL INDICATION: Female, 59 years old with history of R30.0 DYSURIA; Burning with urination. ? UT I like symptoms, w/o findings in urine and bloodwork TECHNIQUE: Grayscale imaging of the bilateral kidneys and urinary bladder: FINDINGS: EXAM MEASUREMENTS: Right Kidney: 9.1 x 3.0 x 5.4 cm Left Kidney: 9.4 x 4.1 x 4.7 cm Right Kidney: wnl, no evidence for hydronephrosis, mass or renal calculus. Left Kidney: Focal contour lobulation at the upper to mid pole measuring 3.2 x 3.1 x 2.8 cm. No hydro nephrosis. Bladder: Unable to visualize due to nondistention IMPRESSION: 1. No hydronephrosis. 2. Focal 3.2 cm rounded contour along the upper to mid pole of the left kidney, possible prominent fe luiza lobulation. Recommend three-month follow-up ultrasound to ensure stability and exclude an underly ing cortical lesion. 3. Unable to assess the bladder due to nondistention. [facility], , 10/29/2024 2:13 PM
== END | disposition home or self-care (01) ==
LOC: RADUSWWP 12:13
PROVIDERS: ATTEND Internal Medicine
DX: R30.0 Dysuria (principal)
CPT/HCPCS: 76770

== ENCOUNTER → 2024-11-21 | Outpatient (CLI) | payer OTHER ==
[2024-11-21 09:03] VITALS: BP 153/89; PULSE 69; RESP 16; TEMP 98.2
--- NOTE | 2024-11-21 12:01 | P.HPOB ---
History of Present Illness H&P Date: 11/21/24 Chief Complaint: Patient is here for her routine gynecologic exam. This is a 59-year-old -0-2-2 with an LMP of 2014. Patient is here to establish with this office. She states that has been more than 7 years since her last pelvic exam. She states she started having some burning with urination intermittently beginning the third week in September. Her PCP treated her with Macrobid twice daily x 5 days. She states it did seem to help for about 1 week and then the burning discomfort returned. She denies vaginal discharge, vaginal odor, or fever. After her symptoms returned, she went to an urgent care clinic and states cultures were performed and she was told this was negative for certain STDs including chlamydia. She continues to have burning with urination intermittently. She can notice some burning in the vagina even when she is not urinating. Review of Systems She believes she has lost about 10 pounds over the past year. She denies respiratory, cardiac, or GI problems. : As in the HPI. Past Medical History Past Medical History: Diabetes Mellitus, Hyperlipidemia, Hypertension Additional Past Medical History / Comment(s): Type 2 diabetes, cyst on a kidney. PAST [employer] HISTORY: She has no history of STDs. History of fibroids in the past. History of Any Multi-Drug Resistant Organisms: None Reported Past Surgical History: Hysterectomy, Orthopedic Surgery Additional Past Surgical History / Comment(s): CHARISSA/BSO in 2014. Sinus bradycardia and knee surgery. Past Psychological History: No Psychological Hx Reported Smoking Status: Current every day smoker (1 pack of cigarettes per day) Past Alcohol Use History: None Reported Past Drug Use History: None Reported Additional History: She is . She is not seeing anybody at this time. She has not been sexually active for more than 10 years. 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 - Past Family History Mother Family Medical History: Diabetes Mellitus, Hypertension, Renal Disease Additional Family Medical History / Comment(s): Paced. She denies family history of cancer of the breast, uterus, ovaries, or colon Father Family Medical History: Unable to Obtain Medications and Allergies Home Medications Medication Instructions Recorded Confirmed Type Atorvastatin [Lipitor] 10 mg PO DAILY 08/22/17 11/21/24 History metFORMIN HCL [Glucophage] 500 mg PO DAILY 08/22/17 11/21/24 History Estradiol Cream [Estrace Cream 1 gm VAGINAL DIRECTED #42.5 gm 11/21/24 Rx 0.01%] Losartan [Cozaar] 50 mg PO DIRECTED 11/21/24 11/21/24 History Losartan [Cozaar] 100 mg PO DIRECTED 11/21/24 11/21/24 History Allergies Allergy/AdvReac Type Severity Reaction Status Date / Time iodine Allergy Rash/Hives Unverified 11/21/24 08:52 ragweed pollen Allergy Unknown Verified 11/21/24 08:52 tree and shrub pollen Allergy Unknown Verified 11/21/24 08:52 Exam Vital Signs Temp Pulse Resp BP Pulse Ox 11/21/24 08:57 98.2 F 69 16 153/89 92 L Intake and Output 11/20/24 11/21/24 11/21/24 22:59 06:59 14:59 Other: Weight 51.71 kg Height 5 feet 3 inches, weight 114 pounds, BMI 20.2. This is a well-developed well-nourished black female who is alert and oriented times 3 in no acute distress. HEENT: Within normal limits. NECK: Supple without mass or thyromegaly. CHEST AND LUNGS: Clear to auscultation. HEART: Regular rate and rhythm. BREASTS: Are without mass or discharge. AXILLARY EXAM: Negative for adenopathy. BACK: Negative for CVA tenderness. ABDOMEN: Soft, nontender, without palpable masses. PELVIC EXAM: Normal external genitalia with moderate atrophy. Cervix and vagina appear normal with moderate atrophy. There is no unusual discharge. There is no evidence of prolapse. The uterus is midposition, nongravid size and nontender. There are no palpable adnexal masses or tenderness. RECTAL EXAM: Rectovaginal exam is negative for mass or tenderness and is negative for occult blood. EXTREMITIES: Nontender. IMPRESSION: 1. 59-year-old menopausal female status post CHARISSA/BSO for benign reasons, with moderate genital atrophy and otherwise unremarkable gynecologic exam. 2. One and a half month history of vaginal and urethral burning mostly with voiding, but also noticed intermittently when she is not voiding. This was transiently improved when she took Macrobid for 5 days about 1-1/2 months ago, but symptoms recurred. Atrophic vaginitis causing burning and dysuria, and less likely, vaginitis from Cindy or Gardnerella. PLAN: 1. Pap smears have been discontinued. 2. Self breast awareness was discussed with the patient. We have also discussed symptoms associated with inflammatory breast cancer. 3. Screening mammogram was done on 06/28/2024 and was benign. She will repeat this after 1 year. The order slip for a mammogram in June will be mailed to the patient. 4. Affirm vaginitis panel was obtained from the vagina to rule out Cindy and Gardnerella. 5. Clean-catch midstream urine has been obtained for urinalysis and urine culture. 6. Estradiol vaginal cream 1 g into the vagina 2 times weekly. She can also put a small amount at the area of the urethral opening. The electronic prescription for this was sent to [facility] pharmacy in [facility]. 7. She denies any sexual activity for greater than 10 years. States some type of testing for chlamydia was obtained at the urgent care clinic last month and she was told it was negative. She states she did not have a vaginal or pelvic exam done at that time so I think it probably was done with urine testing. No additional STD testing was done. 8. She was advised to return in one year for her annual well woman exam and as needed.
[2024-11-21 13:19] LABS: Appearance,Urine Clear (Clear); Bilirubin,Urine Negative (Negative); Blood,Urine Negative (Negative); Color,Urine Colorless; Glucose,Urine (UA) Negative (Negative); Ketones,Urine Negative (Negative); Leukocyte Esterase,Urine Negative (Negative); Nitrite,Urine Negative (Negative); PH, Urine 7.5 (5.0-8.0); Protein,Urine Negative (Negative); Specific Gravity,Urine 1.012 (1.001-1.035); Urobilinogen,Urine <2.0 mg/dL (<2.0)
--- NOTE | 2024-11-22 09:03 | P.PN ---
Progress Note - Text Progress Note Date: 11/22/24 Test results from 11/21/2024 included urinalysis which is negative. The patient was notified by phone on 11/22/2024. She states that started the estradiol vaginal cream as directed. We will wait for the urine culture and affirm vaginitis panel notes.
[2024-11-22 15:50] LABS: Gardnerella Negative (Negative); Trichomonas Negative (Negative)
== END ==
LOC: WWCWWP 08:07
PROVIDERS: ATTEND Obstetrics & Gynecology
DX: Z01.419 Encounter for gynecological examination (general) (routine) without abnormal findings (principal); N95.2 Postmenopausal atrophic vaginitis; F17.200 Nicotine dependence, unspecified, uncomplicated; Z90.722 Acquired absence of ovaries, bilateral; Z90.710 Acquired absence of both cervix and uterus; Z91.041 Radiographic dye allergy status
CPT/HCPCS: 81003; 87086; 87480; 87510; 87660

== ENCOUNTER → 2024-12-06 | Outpatient (CLI) | payer OTHER ==
--- NOTE | 2024-12-06 10:57 | CTL ---
EXAMINATION TYPE: CT Low Dose Lung DATE OF EXAM ORDERED: 12/06/2024 COMPARISON: CLINICAL INDICATION: Female, 59 years old with history of F17.210 nicotine dependence; PHH, SMOKER, L [place] cancer screening, History of Smoking/tobacco use. TECHNIQUE: Low dose computed tomography scan was performed through the chest at 1 mm thick sections a nd reconstructed images in multiple planes at 1 mm and [address] DLP: 58.[address] CTDI: 1.6 mGy Automated exposure control for dose reduction was used. CT DIAGNOSTIC QUALITY: Satisfactory FINDINGS: Nodules: No significant greater than 6 mm noncalcified pulmonary nodules. LUNGS: COPD: Severity: Mild to moderate Fibrosis: Severity: Mild left basilar linear scarring Lymph nodes: None Other findings: None RIGHT PLEURAL SPACE: Effusion: None Calcification: None Thickening: None Pneumothorax: None LEFT PLEURAL SPACE: Effusion: None Calcification: None Thickening: None Pneumothorax: None HEART: Heart Size: Normal Coronary Calcification: Tiny Pericardial Effusion: None OTHER FINDINGS: Upper abdomen: None Bony thorax: None Supraclavicular region: None Other: None IMPRESSION: No suspicious nodules. CT LUNG RAD AND CT CHEST RECOMMENDATION: Lung-Rad 1 Negative: Continue annual screening with LDCT in 12 months. S Modifier (other clinically significant findings): None [facility], , 12/06/2024 10:54 AM
== END | disposition home or self-care (01) ==
LOC: RADCTMAIN 10:20
PROVIDERS: ATTEND Internal Medicine
DX: Z12.2 Encounter for screening for malignant neoplasm of respiratory organs (principal); F17.210 Nicotine dependence, cigarettes, uncomplicated; J44.9 Chronic obstructive pulmonary disease, unspecified
CPT/HCPCS: 71271